=== PATIENT | female | born 1930 | race Two or more races ===

== ENCOUNTER 2017-08-26 12:27 | Inpatient (IN) | payer OTHER ==
[~2017-08-26] VITALS: Ht 152.4 cm; Wt 58.1 kg
[~2017-08-26 12:27] MED LIST: ATO40T PO; LIS10T PO
[2017-08-26 12:58] LABS: Basophils # (auto) 0 uL; Basophils % (auto) 0.4 % (0.0-2.0); Eosinophils # (auto) 0.1 uL; Eosinophils % (auto) 1.7 % (0.0-7.0); Hematocrit 35.8 % (36.0-46.0); Hemoglobin 11.9 g/dL (12.2-16.2); Lymphocytes # (auto) 2.2 uL; Lymphocytes % (auto) 41.5 % (10.0-50.0); Mean Corpuscular Hemoglobin 31.7 pg (28.0-32.0); Mean Corpuscular Hgb Conc. 33.3 g/dL (32.0-36.0); Mean Corpuscular Volume 95.1 fL (80.0-100.0); Monocytes # (auto) 0.4 uL; Monocytes % (auto) 8.5 % (0.0-12.0); Neutrophils # (auto) 2.5 uL; Neutrophils % (auto) 47.9 % (37.0-80.0); Nucleated Red Blood Cells % 0.1 %; Platelet Count (auto) 146 10^3/uL (140-450); Red Blood Cells 3.76 10^6/uL (4.0-5.20); Red Cell Distribution Width 13.8 % (11.8-14.3); White Blood Cell 5.3 10^3/uL (4.4-10.8)
[2017-08-26 13:21] LABS: Alanine Aminotransferase 21 U/L (13-56); Albumin 3.7 g/dL (3.4-5.0); Alkaline Phosphatase 75 U/L (45-117); Anion Gap 11 (5-15); Aspartate Aminotransferase 21 U/L (15-37); BUN/Creatinine Ratio 21.4; Bilirubin, Total 0.5 mg/dL (0.2-1.0); Blood Urea Nitrogen 25 mg/dL (7-18); Carbon Dioxide 25 mmol/L (21-32); Chloride 109 mmol/L (98-107); GFR African American 56 mL/min; GFR Non-African American 46 mL/min; Glucose 97 mg/dL (74-106); Magnesium 2.9 mg/dL (1.6-2.6); Potassium 4.3 mmol/L (3.5-5.1); Sodium 145 mmol/L (136-145); Total Protein 7.5 g/dL (6.4-8.2)
[2017-08-26] MEDS ORDERED: LORazepam 0.5 MG TAB PO PRN (13:45)
[2017-08-26] MEDS ORDERED: NITROGLYCERIN 0.4 MG SL TAB SL PRN (13:45)
[2017-08-26] MEDS ORDERED: MORPHINE SULFATE 8mg/ml INJ SDV IV PRN ×2 (13:45)
[2017-08-26] MEDS ORDERED: TEMAZEPAM 15 MG CAP PO PRN (13:45)
[2017-08-26] MEDS ORDERED: ACETAMINOPHEN 500 MG TAB PO PRN (13:45)
[2017-08-26] MEDS ORDERED: PROMETHAZINE HCL 25 MG/ML 1ML IV PRN (13:45)
[2017-08-26] MEDS: SODIUM CHLOR 0.9% PF (SALINE LOCK) 10ML VIAL/SYR IV SCH ×2 (14:05→21:25)
[2017-08-26] MEDS ORDERED: FUROSEMIDE 20 MG/2 ML VIAL IV ONE (14:15)
[2017-08-26] MEDS ORDERED: POTASSIUM CHLORIDE 8 MEQ TAB PO ONE (14:15)
[2017-08-26] MEDS ORDERED: METF-370 PO (14:16)
[2017-08-26] MEDS ORDERED: ATOR20TA50 PO (14:16)
[2017-08-26] MEDS ORDERED: FLUT0.05 NAS (14:16)
[2017-08-26] MEDS ORDERED: DICL1GEL26 TOP (14:16)
[2017-08-26] MEDS ORDERED: MECL-87 PO (14:16)
[2017-08-26] MEDS ORDERED: PIO30T PO (14:16)
[2017-08-26] MEDS ORDERED: LOSA100T27 PO (14:16)
[2017-08-26] MEDS ORDERED: ASPI-498 PO (14:16)
[2017-08-26] MEDS ORDERED: AMLO5TAB2 PO (14:16)
[2017-08-26] MEDS ORDERED: PANT1INJ3 PO (14:16)
[2017-08-26] MEDS ORDERED: SUCR1TAB PO (14:16)
[2017-08-26] MEDS ORDERED: ALPR0.254 PO (14:16)
[2017-08-26 18:40] VITALS: BP 151/67
[2017-08-26] MEDS ORDERED: WARF2.5T39 PO (18:51)
[2017-08-26] MEDS: METOPROLOL TARTRATE 25 MG TAB PO SCH (21:25)
[2017-08-26 21:57] LABS: Urine Bacteria FEW /hpf (None Seen); Urine Blood Negative /uL (Negative); Urine Hyaline Cast FEW /lpf (0 - 2); Urine Specific Gravity 1.008 (1.001-1.035); Urine WBC 1 /hpf (0 - 5)
[2017-08-26 22:00] VITALS: BP 150/74
[2017-08-26] MEDS ORDERED: ATORVASTATIN 20 MG TAB PO SCH (22:00)
[2017-08-27] MEDS: HYDROcodone-ACET 5/325MG TAB PO PRN ×2 (03:57→14:20)
[2017-08-27] MEDS: SODIUM CHLOR 0.9% PF (SALINE LOCK) 10ML VIAL/SYR IV SCH (05:14)
[2017-08-27 05:23] VITALS: BP 118/59
[2017-08-27 06:42] LABS: Cholesterol 257 mg/dL (< 200); HDL Cholesterol 62 mg/dL (40-59); LDL Cholesterol 174 mg/dL (< 100); Triglycerides 104 mg/dL (< 150)
[2017-08-27 09:00] VITALS: BP_SYST 102; BP_SYST 124; BP_DIAS 50; BP_DIAS 58
[2017-08-27] MEDS ORDERED: NITROGLYCERIN 0.2MG/HR TOPICAL PATCH TD SCH (10:00)
[2017-08-27] MEDS ORDERED: ASPirin 81 mg TAB PO SCH (10:00)
[2017-08-27] MEDS ORDERED: PANTOPRAZOLE 40 MG TAB PO SCH (10:00)
[2017-08-27] MEDS ORDERED: ENALAPRIL MALEATE 2.5 MG TAB PO SCH (10:00)
[2017-08-27] MEDS ORDERED: LISINOPRIL 10 MG TAB PO SCH (10:00)
[2017-08-27] MEDS: METOPROLOL TARTRATE 25 MG TAB PO SCH (10:16)
[2017-08-27 12:24] LABS: INR 1.18 (0.9-1.15); Partial Thromboplastin Time 31.3 sec (23.78-33.04); Prothrombin Time 12.5 sec (9.27-12.13)
[2017-08-27 13:00] VITALS: BP 109/60
[2017-08-27 13:24] VITALS: BP 115/64
== END 2017-08-27 14:30 | disposition home or self-care (01) | DRG 293 ==
LOC: EDBD 12:27 → ER 12:27 → TELE 12:28 → TELE-CENTR 18:30
PROVIDERS: ADMIT Internal Medicine; ATTEND Family Medicine
DX: I11.0 Hypertensive heart disease with heart failure (principal); R07.89 Other chest pain; I50.43 Acute on chronic combined systolic (congestive) and diastolic (congestive) heart failure; E78.5 Hyperlipidemia, unspecified; M19.90 Unspecified osteoarthritis, unspecified site; M81.0 Age-related osteoporosis without current pathological fracture; Z82.49 Family history of ischemic heart disease and other diseases of the circulatory system; Z90.710 Acquired absence of both cervix and uterus; Z90.49 Acquired absence of other specified parts of digestive tract; Z88.0 Allergy status to penicillin; Z79.899 Other long term (current) drug therapy
CPT/HCPCS: 36415; 71046; 80053; 80061; 81001; 82550; 83735; 83880; 84443; 84484; 85025; 85379; 85610; 85652; 85730; 86141; 93005; 93306; 94761; 96374